=== PATIENT | female | born 2000 | race Caucasian/White ===

== ENCOUNTER 2022-07-10 12:34 | Emergency (ER) | payer SELFPAY ==
[~2022-07-10] VITALS: Ht 154.9 cm; Wt 49.9 kg
--- NOTE | 2022-07-10 12:35 | NUR ---
Pt DENNYS, [place], via gurney to bed 11.
[2022-07-10 12:41] VITALS: BP 124/80
--- NOTE | 2022-07-10 13:21 | NUR ---
PT OVERDOSED ON METH AND FENTANYL. GIVEN 4MG NARCAN INH AND 0.5 IVP BY [employer]. PT AOX4. STACH ON MONITOR. 99% RA
--- NOTE | 2022-07-10 13:30 | NUR ---
PT [place]ES WITHOUT ASSISTANCE. AOX4. IV REMOVED NO ACTIVE BLEEDING.
[2022-07-10 14:56] VITALS: BP 122/70
--- NOTE | 2022-07-10 14:56 | NUR ---
Patient discharged with v/s stable. Written and verbal after care instructions given and explained. Patient verbalized understanding. Ambulatory with steady gait. All questions addressed prior to discharge. Advised to follow up with PMD.
== END 2022-07-10 14:56 | disposition home or self-care (01) ==
LOC: MED 12:34
DX: T40.411A Poisoning by fentanyl or fentanyl analogs, accidental (unintentional), initial encounter (principal); F17.200 Nicotine dependence, unspecified, uncomplicated; F12.90 Cannabis use, unspecified, uncomplicated; Y92.89 Other specified places as the place of occurrence of the external cause
CPT/HCPCS: 99283

== ENCOUNTER 2022-08-10 10:46 | Emergency (ER) | payer SELFPAY ==
[~2022-08-10] VITALS: Ht 167.6 cm; Wt 59.0 kg
[2022-08-10 11:04] VITALS: BP 117/87
--- NOTE | 2022-08-10 11:04 | NUR ---
21 y/o female bib pd, pt presents to ed with open blisters on body with itching. 6/10 pain on bl arms and legs. pmh: denies nka med: denies
--- NOTE | 2022-08-10 12:22 | NUR ---
PT WOUND TO R POSTERIOR HAND DRESSED WITH NON ADHERENT X 1
--- NOTE | 2022-08-10 12:34 | NUR ---
Patient discharged with v/s stable. Written and verbal after care instructions given and explained. Patient verbalized understanding. with Police in custody. All questions addressed prior to discharge. Advised to follow up with PMD.
[2022-08-10 12:36] VITALS: BP 117/87
== END 2022-08-10 12:36 ==
LOC: MED 10:46
DX: Z02.89 Encounter for other administrative examinations (principal); R23.4 Changes in skin texture; L98.8 Other specified disorders of the skin and subcutaneous tissue
CPT/HCPCS: 99283

== ENCOUNTER 2022-08-19 11:36 | Emergency (ER) | payer SELFPAY ==
[~2022-08-19] VITALS: Ht 154.9 cm; Wt 52.2 kg
[2022-08-19 11:39] VITALS: BP 123/70
--- NOTE | 2022-08-19 11:43 | NUR ---
PT BIB ALS RUN FOUND UNRESPONSIVE, FRIEND STATES USED FENTANYL, GIVEN 2MG INTRANASAL, PT GCS 15. STACH ON MONITOR. BREATHING UNLABORED. 100% RA.
[2022-08-19] MEDS ORDERED: NALO4SPR NS (13:30)
[2022-08-19 14:23] VITALS: BP 118/70
--- NOTE | 2022-08-19 14:23 | NUR ---
Patient discharged with v/s stable. Written and verbal after care instructions given and explained. Patient alert, oriented and verbalized understanding of instructions. Ambulatory with steady gait. All questions addressed prior to discharge. ID band removed. Patient advised to follow up with PMD. Rx of NARCAN given. Patient educated on indication of medication including possible reaction and side effects. Opportunity to ask questions provided and answered.
== END 2022-08-19 14:23 | disposition home or self-care (01) ==
LOC: MED 11:36
DX: T40.414A Poisoning by fentanyl or fentanyl analogs, undetermined, initial encounter (principal); F15.10 Other stimulant abuse, uncomplicated; L98.8 Other specified disorders of the skin and subcutaneous tissue; F17.210 Nicotine dependence, cigarettes, uncomplicated; Z79.899 Other long term (current) drug therapy; Y92.89 Other specified places as the place of occurrence of the external cause
CPT/HCPCS: 99283

== ENCOUNTER 2022-09-16 23:22 | Emergency (ER) | payer SELFPAY ==
[~2022-09-16] VITALS: Ht 167.6 cm; Wt 59.0 kg
[2022-09-16 23:22] VITALS: BP 143/88
[~2022-09-16 23:22] MED LIST: NALO4SPR NS
--- NOTE | 2022-09-16 23:28 | NUR ---
PT DENNYS ALS. TAKEN TO BED 1
--- NOTE | 2022-09-16 23:30 | NUR ---
BIBA FOR OD ON FENTANYL, PT WAS UNRESPONSIVE, [place] ADMINISTERED 8 MG NARCAN IN, PT A/O X4, SPEAKING IN COMPLETE SENTENCES, PT PLACED ON CARDAIC MONITOR, DR DEXTER AT BEDSIDE EVALUATING PT. HX- ADHD
--- NOTE | 2022-09-16 23:32 | NUR ---
Dr. Arenas examining patient.
--- NOTE | 2022-09-17 00:35 | NUR ---
WARM BLAKETS AND APPLE JUICE GIVEN TO PT.
[2022-09-17] MEDS ORDERED: NACL 0.9% 1,000 ML IV ONE (00:40)
[2022-09-17] MEDS ORDERED: NALO4SPR NS (00:51)
--- NOTE | 2022-09-17 01:30 | NUR ---
PT RESTING, NO RESPIRATORY DISTRESS OBSERVED. PT O2 MAINTAIN ABOVE 97%RA AND UNLABORED BREATING WITH RATE ABOVE 16.
[2022-09-17 02:30] VITALS: BP 124/64
== END 2022-09-17 03:04 | disposition home or self-care (01) ==
LOC: MED 23:22
DX: F19.10 Other psychoactive substance abuse, uncomplicated (principal); T40.2X1A Poisoning by other opioids, accidental (unintentional), initial encounter; Y92.89 Other specified places as the place of occurrence of the external cause
CPT/HCPCS: 96360; 99283; J7030

== ENCOUNTER 2022-09-19 20:19 | Emergency (ER) | payer SELFPAY ==
[~2022-09-19] VITALS: Ht 167.6 cm; Wt 59.0 kg
--- NOTE | 2022-09-19 20:22 | NUR ---
DENN[facility] ALS TO BED #8
[2022-09-19 20:28] VITALS: BP 136/85
--- NOTE | 2022-09-19 20:28 | NUR ---
REPORT FROM EMS. PT A&OX4, RR EVEN AND UNLABORED. PROVIDED JUICE TO PT WITH ICE. SEE ASSESSMENT
[2022-09-19] MEDS ORDERED: NACL 0.9% 1,000 ML IV ONE (20:30)
[2022-09-19] MEDS ORDERED: LORazepam 1 MG TAB PO ONE (21:20)
[2022-09-19] MEDS ORDERED: NALO4SPR NS (21:49)
--- NOTE | 2022-09-19 22:40 | NUR ---
PT TAKEN TO SHOWER ROOM, PROVIDED CLOTHES AND ALL TOILETRIES.
== END 2022-09-19 23:27 | disposition home or self-care (01) ==
LOC: MED 20:19
DX: F11.23 Opioid dependence with withdrawal (principal); Z79.899 Other long term (current) drug therapy
CPT/HCPCS: 93005; 96360; 99283; J7030